=== PATIENT | male | born 1995 | race Caucasian/White ===

== ENCOUNTER 2018-08-29 13:16 | Emergency (ER) | payer OTHER ==
[~2018-08-29] VITALS: Ht 182.9 cm; Wt 77.1 kg
[2018-08-29 13:38] VITALS: BP 132/83
--- NOTE | 2018-08-29 13:39 | NUR ---
ED Nurse Note: right flank pain x 9 days worsening. denies injury to area.pt stated he might have pulled his mucle on the part. pt is complaining of 4/10 pain. will continue to monitor.
--- NOTE | 2018-08-29 13:50 | NUR ---
ED Nurse Note: pt able to give urine specimen and was sent to the lab.
--- NOTE | 2018-08-29 13:50 | Emergency Room Report ---
History of Present Illness General Chief Complaint: Back Pain-No Injury Source: Patient Present Illness HPI Patient is a 23-year-old male presenting for right-sided back pain. He states that this began approximately 3 days prior. Pain is a 4/10 dull ache and does not radiate. Worse with movement and deep breaths. He denies any known injury to the area. He denies any other symptoms including nausea, vomiting, fever, chills, shortness of breath, cough, abdominal pain Allergies: Coded Allergies: No Known Allergies (Unverified , 08/29/18) Patient History Past Medical History: see triage record Pertinent Family History: none Reviewed Nursing Documentation: PMH: Agreed; PSxH: Agreed Nursing Documentation-PMH Past Medical History: No Stated History Review of Systems All Other Systems: negative except mentioned in HPI Physical Exam Vital Signs Date Time Temp Pulse Resp B/P (MAP) Pulse Ox O2 Delivery O2 Flow Rate FiO2 08/29/18 13:26 98.4 82 20 132/83 98 Room Air Sp02 EP Interpretation: reviewed, normal General Appearance: no apparent distress, alert, GCS 15, non-toxic Head: normocephalic, atraumatic Neck: full range of motion, no bony tend, supple/symm/no masses Respiratory: chest non-tender, lungs clear, normal breath sounds, speaking full sentences Cardiovascular #1: regular rate, rhythm, no edema Musculoskeletal: normal inspection, normal range of motion, tender - R thoracic paraspinal muscles Neurologic: alert, oriented x3, responsive, motor strength/tone normal, sensory intact, speech normal Psychiatric: judgement/insight normal, memory normal, mood/affect normal, no suicidal/homicidal ideation Skin: normal color, no rash, warm/dry, well hydrated Medical Decision Making PA Attestation Dr. Patrick is my supervising physician. Patient management was discussed with my supervising physician Diagnostic Impression: Primary Impression: Pain of paraspinal muscle ER Course Patient is a 23-year-old male presenting for right-sided back pain. differential diagnosis considered but not limited to: Muscle strain, contusion, muscle spasm PE: Afebrile. NAD There is localized tenderness to palpation over the right paraspinal muscles. No midline tenderness. Full active range of motion is intact. No skin changes. No edema Lungs clear to auscultation bilaterally Abdomen soft and nontender The patient is told to use heat therapy at home with massage. He will use Motrin and Robaxin. ER precautions given Last Vital Signs Date Time Temp Pulse Resp B/P (MAP) Pulse Ox O2 Delivery O2 Flow Rate FiO2 08/29/18 13:38 98.4 82 20 132/83 98 Room Air Status: improved Disposition: HOME, SELF-CARE Condition: Improved Scripts Methocarbamol* (ROBAXIN-750*) 750 Mg Tablet 750 MG PO TID, #21 TAB 0 Refills Prov: ARELY GONZALEZ.Anne-Marie 08/29/18 Ibuprofen* (MOTRIN*) 600 Mg Tablet 600 MG ORAL Q8H PRN for For Pain, #30 TAB 0 Refills Prov: ARELY GONZALEZ.Anne-Marie 08/29/18 ARELY GONZALEZ Aug 29, 2018 13:50
[2018-08-29 13:51] LABS: APPEARANCE,URINE CLEAR; BILIRUBIN, URINE NEGATIVE (NEGATIVE); COLOR,URINE PALE YELLOW; GLUCOSE, URINE (UA) NEGATIVE (NEGATIVE); KETONES,URINE NEGATIVE (NEGATIVE); LEUKOCYTE ESTERASE ,URINE NEGATIVE (NEGATIVE); NITRITE,URINE NEGATIVE (NEGATIVE); PH,URINE 7 (4.5-8.0); PROTEIN,URINE NEGATIVE (NEGATIVE); UROBILINOGEN,URINE NORMAL MG/DL (0.0-1.0)
[2018-08-29] MEDS ORDERED: IBUPROFEN600 MG ORAL (14:00)
[2018-08-29] MEDS ORDERED: ROBAXIN-750750 MG PO (14:00)
[2018-08-29 14:08] VITALS: BP 132/83
--- NOTE | 2018-08-29 14:08 | NUR ---
ER DISCHARGE NOTE: Patient is cleared to be discharged per ERMD, pt is aox4, on room air, with stable vital signs. pt was given dc and prescription instructions, pt was able to verbalize understanding, pt id band removed without complications. pt is able to ambulate with steady gait. pt took all belongings.
== END 2018-08-29 15:00 | disposition home or self-care (01) ==
LOC: EMR 14:15
DX: M54.9 Dorsalgia, unspecified (principal)
CPT/HCPCS: 81003; 99282